=== PATIENT | male | born 1940 ===

== ENCOUNTER 2019-12-24 13:12 | Outpatient (REF) | payer SELFPAY ==
[2019-12-27 09:03] LABS: SARS-CoV-2 RNA Undetected (Undetected); SARS-CoV-2 Specimen Source Nasopharynx
== END 2019-12-24 13:32 ==
LOC: NCHCN 13:12
PROVIDERS: Visit Provider Family Medicine
DX: Z20.828 Contact with and (suspected) exposure to other viral communicable diseases (principal)
CPT/HCPCS: U0003